=== PATIENT | female | born 1995 | race Caucasian/White ===

== ENCOUNTER 2019-04-14 13:05 | Emergency (ER) | payer OTHER, SELFPAY ==
--- NOTE | 2019-04-14 13:25 | ED.PSYCH ---
HPI - Psych General Chief Complaint: Psychiatric Symptoms Stated Complaint: SI, SENT FROM CRISIS FOR MED CLEAR Time Seen by Provider: 04/14/19 13:19 Source: patient Mode of arrival: ambulatory Limitations: no limitations History of Present Illness HPI Narrative: Patient is a 23-year-old female who was sent over by her therapist for suicidal ideation patient denies any other complaints at this time has history of depression anxiety and suicidal ideation has been hospitalized in the past for this patient was seen her therapist and had expressed concern for thoughts of harming herself was referred to emergency department. Patient denies any other complaints and presents per EMS in no distress Related Data Allergies Allergy/AdvReac Type Severity Reaction Status Date / Time clonazepam AdvReac Intermediate tongue Verified 05/16/18 20:17 swelling Review of Systems Review of Systems: All systems reviewed & are unremarkable except as noted in HPI and below PMFSH Past Medical History Medical History (Updated 04/14/19 @ 19:26 by Gorge Lewis PA-C) Anxiety Depression Suicidal ideation Surgical History Surgical History History of appendectomy Social History Social History Smoking status: Never smoker Course Course Emergency Course: Patient in the room in no distress was medically cleared and will be transferred to psych facility and patient Vital Signs Vital signs: Vital Signs Temperature 98.7 F 04/14/19 13:42 Pulse Rate 76 04/14/19 13:42 Respiratory Rate 18 04/14/19 13:42 Blood Pressure 122/75 04/14/19 13:42 Pulse Oximetry 98 04/14/19 13:42 Temperature 98.7 F 04/14/19 13:42 Pulse Rate 76 04/14/19 13:42 Respiratory Rate 18 04/14/19 13:42 Blood Pressure 122/75 04/14/19 13:42 Pulse Oximetry 98 04/14/19 13:42 MDM - Psych MDM Narrative Medical decision making narrative: Patient is resting comfortably in the emergency department in no distress being transferred to psych facility for inpatient treatment Lab Data Result diagrams: 04/14/19 14:20 04/14/19 14:20 Labs: Lab Results 04/14/19 04/14/19 04/14/19 Range/Units 14:20 14:20 14:20 WBC 8.2 (4.5-10.0) K/mm3 RBC 4.90 (4.2-5.4) M/mm3 Hgb 14.6 (12.0-15.0) g/dL Hct 44.1 (37.0-47.0) % MCV 90.0 (80-100) fl MCH 29.8 (26-34) pg MCHC 33.1 (32-36) g/dl RDW 13.2 (11.5-14.5) % Plt Count 213 (150-375) k/mm3 MPV 11.8 H (7.4-10.4) fl Immature Gran % (Auto) 0.4 (0-0.5) % Neut % (Auto) 67.1 (45.5-73.1) % Lymph % (Auto) 24.0 (18.3-44.2) % [place] % (Auto) 6.7 (2.6-8.5) % Eos % (Auto) 1.3 (0-4.4) % Baso % (Auto) 0.5 (0.2-1.2) % Lymph # (Auto) 1.97 (0.9-3.2) K/mm3 [place] # (Auto) 0.6 (0.1-0.6) K/mm3 Eos # (Auto) 0.1 (0-0.3) K/mm3 Baso # (Auto) 0.0 (0.0-0.1) K/mm3 Abs Immat Gran (auto) 0.03 (0.00-0.031) K/mm3 Absolute Neuts (auto) 5.5 (1.3-6.7) K/mm3 Absolute Nucleated RBC 0.0 (0.0-0.012) K/mm3 Nucleated RBC % 0.0 (0.0-0.2) % Sodium 137 (137-145) mmol/L Potassium 4.0 (3.4-5.0) mmol/L Chloride 103 (98-107) mmol/L Carbon Dioxide 24 (22-30) mmol/L BUN 10 (7-17) mg/dL Creatinine 0.80 (0.7-1.0) mg/dL Estim Creat Clear Calc 110 ml/min Estimated GFR > 60 (59 - ) Glucose 92 (65-105) mg/dL Calcium 9.1 (8.4-10.2) mg/dL Total Bilirubin 0.5 (0.2-1.3) mg/dL AST 35 (14-36) U/L ALT 59 H (4-35) U/L Alkaline Phosphatase 101 (38-126) U/L Total Protein 7.0 (6.3-8.2) g/dL Albumin 4.1 (3.5-5.1) g/dL TSH 1.760 (0.465-4.680) uIU/mL Urine Color (Yellow) Urine Appearance (Clear) Urine pH (5.0-9.0) Ur Specific [place] (1.001-1.035) Urine Protein (Negative) mg/dL Urine Glucose (UA) (Negati
[2019-04-14 13:42] VITALS: BP 122/75; PULSE 76; RESP 18; TEMP 37.1; O2SAT 98
[2019-04-14 14:28] LABS: Basophils Percent Auto 0.5 % (0.2-1.2); Eosinophils Absolute Auto 0.1 K/mm3 (0-0.3); Eosinophils Percent Auto 1.3 % (0-4.4); Hematocrit 44.1 % (37.0-47.0); Hemoglobin 14.6 g/dL (12.0-15.0); Immature Granulocyte Absolute 0.03 K/mm3 (0.00-0.031); Immature Granulocyte Percent A 0.4 % (0-0.5); Lymphocytes Absolute Auto 1.97 K/mm3 (0.9-3.2); Mean Corpuscular HGB Conc 33.1 g/dl (32-36); Mean Corpuscular Hemoglobin 29.8 pg (26-34); Mean Platelet Volume 11.8 fl (7.4-10.4); Monocytes Absolute Auto 0.6 K/mm3 (0.1-0.6); Monocytes Percent Auto 6.7 % (2.6-8.5); Neutrophils Absolute Auto 5.5 K/mm3 (1.3-6.7); Neutrophils Percent Auto 67.1 % (45.5-73.1); Platelet Count Result 213 k/mm3 (150-375); Red Cell Distribution Width 13.2 % (11.5-14.5); White Blood Count 8.2 K/mm3 (4.5-10.0)
[2019-04-14 14:34] LABS: Add Urine Microscopic? YES; Amorphous Sediment Urine Few; Appearance Urine Cloudy (Clear); Bacteria Urine Trace /hpf; Bilirubin Urine Negative (Negative); Blood Urine Negative (Negative); Color Urine Yellow (Yellow); Glucose Urine UA Negative (Negative); Ketones Urine Negative (Negative); Leukocyte Esterase Ur Trace LEU/UL (Negative); Mucus Urine Rare /lpf; Nitrate Urine Negative (Negative); Protein Urine Negative (Negative); RBC Urine 0-2 /hpf (0-2); Specific Grav Ur 1.016 (1.001-1.035); Squamous Epithelial Cell Urine Many /hpf (Few); Urobilinogen Urine Negative mg/dL (<2.0); WBC Urine 0-3 /hpf
[2019-04-14 14:40] LABS: Ethanol < 10 mg/dL (<10)
[2019-04-14 15:12] LABS: Barbiturate Screen Urine Negative (Negative); Benzodiazepines Screen Urine Negative (Negative)
[2019-04-14 15:13] LABS: Alanine Aminotransferase 59 U/L (4-35); Albumin Level 4.1 g/dL (3.5-5.1); Alkaline Phosphatase 101 U/L (38-126); Aspartate Amino Transferase 35 U/L (14-36); Bilirubin,Total 0.5 mg/dL (0.2-1.3); Blood Urea Nitrogen 10 mg/dL (7-17); Calcium 9.1 mg/dL (8.4-10.2); Carbon Dioxide 24 mmol/L (22-30); Chloride 103 mmol/L (98-107); Estimated CRCL calculation 110 ml/min; Estimated Glomerular Filt Rate > 60; Glucose 92 mg/dL (65-105); Sodium 137 mmol/L (137-145)
[2019-04-14 15:15] LABS: Amphetamine Screen Urine Negative (Negative); Cannabinoid Screen Urine Negative (Negative); Cocaine Screen Urine Negative (Negative); Methadone Screen Urine Negative (Negative); Opiate Screen Urine Negative (Negative); Phencyclidine Screen Urine Negative (Negative)
--- NOTE | 2019-04-14 16:25 | PC.NURSE ---
Patient medically cleared by physician.
--- NOTE | 2019-04-14 18:44 | PC.NURSE ---
Maico from [facility] called for screening, reports he will call back.
--- NOTE | 2019-04-14 19:09 | PC.NURSE ---
Chon from [facility] in [place] called with an accepting physician, Ceci. Gave code [id number] for transport service, number [phone].
--- NOTE | 2019-04-14 19:26 | PC.NURSE ---
Called [facility] transport per direction from [facility] [place] for transport. ETA [id number].
[2019-04-14 22:03] VITALS: BP 120/73; PULSE 76; RESP 14; O2SAT 99
== END 2019-04-14 22:10 ==
PROVIDERS: Emergency Medicine; Emergency Provider Emergency Medicine
DX: R45.851 Suicidal ideations (principal); F32.9 Major depressive disorder, single episode, unspecified; F41.9 Anxiety disorder, unspecified
CPT/HCPCS: 36415; 80053; 80307; 81001; 81025; 84443; 85025; 99285

== ENCOUNTER 2021-02-28 10:29 | Emergency (ER) | payer OTHER, SELFPAY ==
[2021-02-28 10:32] VITALS: BP 120/82; PULSE 65; RESP 16; TEMP 37.1; O2SAT 100
[2021-02-28 11:37] VITALS: BP 112/45; PULSE 87; RESP 17; TEMP 36.6; O2SAT 100
[2021-02-28 12:14] VITALS: PULSE 75; RESP 16; O2SAT 100
[2021-02-28 12:15] VITALS: BP 94/62; PULSE 74; RESP 16; O2SAT 100
--- NOTE | 2021-02-28 13:03 | ED.ALLEREA ---
HPI - Allergic Reaction General Chief complaint: Allergic Reaction Stated complaint: ALL RX TO DAIRY Time Seen by Provider: 02/28/21 11:18 Source: patient Mode of arrival: EMS Limitations: no limitations History of Present Illness HPI narrative: 25-year-old with a history of milk allergy here with complaints of having allergic reaction after eating something with milk. Patient states that she was short of breath. She did receive half amp of epi on the way to the hospital by EMS. She presently states that she is feeling tired denies any shortness of breath or rash or abdominal pain, nausea. Related Data Allergies Allergy/AdvReac Type Severity Reaction Status Date / Time clonazepam AdvReac Intermediate tongue Verified 05/16/18 20:17 swelling Review of Systems Review of Systems: All systems reviewed & are unremarkable except as noted in HPI and below Constitutional: Constitutional: Reports no additional constitutional complaints Eyes: Eyes: Reports no additional eye complaints ENT: Reports system reviewed and no additional complaints, except as documented Cardiovascular: Cardiovascular: Reports no additional cardiovascular complaints Respiratory: Respiratory: Reports as per HPI Gastrointestinal: Gastrointestinal: Reports no additional gastrointestinal complaints Musculoskeletal: Musculoskeletal: Reports no additional musculoskeletal complaints Integumentary/Breasts: Skin/Breast: Reports system reviewed and no additional complaints, except as docu Neurologic: Reports system reviewed and no additional complaints, except as documented Psychiatric: Psychiatric: Reports no additional psychiatric complaints Endocrine: Endocrine: Reports no additional endocrine complaints Hematologic/Lymphatic: Hematologic/Lymphatic: Reports no additional hematologic/lymphatic complaints PMFSH Past Medical History Medical History Anxiety Depression Suicidal ideation Surgical History Surgical History History of appendectomy Social History Social History Smoking status: Never smoker Exam Narrative: GENERAL: Well-appearing, well-nourished, and in no acute distress. HEAD: Normocephalic, atraumatic. EYES: PERRLA and EOMI. ENT: Nares clear, no rhinorrhea or epistaxis. Mucous membranes moist. NECK: Supple. CHEST: Clear to auscultation. No respiratory distress. HEART: Regular rate and rhythm. No murmur heard. Normal peripheral pulses. ABDOMEN: Soft, nontender, nondistended, normal active bowel sounds. EXTREMITIES: Normal range of motion. No edema. SKIN: Warm, dry, no rash. NEURO: No focal deficits. Alert and oriented x3. PSYCH: Normal mood and affect. Course Course Emergency Course: Patient feeling comfortable other than being tired from Benadryl she states she is feeling much better. No further difficulty in breathing. Informed her to follow-up with her primary doctor. Vital Signs Vital signs: Vital Signs Temperature 37.1 C 02/28/21 10:32 Pulse Rate 65 02/28/21 10:32 Respiratory Rate 16 02/28/21 10:32 Blood Pressure 120/82 02/28/21 10:32 Pulse Oximetry 100 02/28/21 10:32 Temperature 36.6 C 02/28/21 11:37 Pulse Rate 82 02/28/21 13:08 Respiratory Rate 18 02/28/21 13:08 Blood Pressure 110/52 L 02/28/21 13:08 Pulse Oximetry 100 02/28/21 13:08 Discharge Plan Discharge Clinical Impression: Allergic reaction Qualifiers: Encounter type: initial encounter Qualified Code(s): T78.40XA - Allergy, unspecified, initial encounter Patient Disposition: Home, Self-Care Condition: Stable Instructions: Antibiotic Form, Food Allergy (ED) Additional Instructions: Continue home medication, follow-up with your primary doctor Follow-up/Referrals: Arturo Fox MD [Physician] - PHYSICIAN,[facility]ER [Primary Care Provider
[2021-02-28 13:08] VITALS: BP 110/52; PULSE 82; RESP 18; O2SAT 100
== END 2021-02-28 13:32 | disposition home or self-care (01) ==
PROVIDERS: Emergency Provider Family Medicine
DX: T78.1XXA Other adverse food reactions, not elsewhere classified, initial encounter (principal); R06.02 Shortness of breath; R53.83 Other fatigue; Z91.011 Allergy to milk products
CPT/HCPCS: 99281